=== PATIENT | male | born 1975 | race Caucasian/White ===

== ENCOUNTER 2021-12-30 19:15 | Emergency (ER) | payer MEDICAID ==
[~2021-12-30] VITALS: Ht 165.1 cm; Wt 100.0 kg
[2021-12-30] MEDS ORDERED: FLUORESCEIN SODIUM 1 MG STRIP OU ONE (20:00)
[2021-12-30] MEDS ORDERED: PROPARACAINE HCL 0.5% 15 ML OPHTHALMIC SOLUTION OU ONE (20:00)
[2021-12-30] MEDS ORDERED: ERYTHROMYCIN 0.5% 3.5 GM TUBE OPHTHALMIC OINTMENT OU ONE (21:15)
[2021-12-30 22:15] VITALS: BP 125/97
== END 2021-12-30 22:16 | disposition home or self-care (01) ==
LOC: EMS 19:19
DX: H57.89 Other specified disorders of eye and adnexa (principal); Z88.5 Allergy status to narcotic agent
CPT/HCPCS: 99284; Z7502; Z7610

== ENCOUNTER 2022-02-28 12:03 | Emergency (ER) | payer MEDICAID ==
[~2022-02-28] VITALS: Ht 165.1 cm; Wt 98.6 kg
[2022-02-28] MEDS ORDERED: METF-1185 PO (12:09)
[2022-02-28 12:16] VITALS: BP 147/84
[2022-02-28] MEDS ORDERED: KETOROLAC TROMETHAMINE 60 MG/2 ML VIAL IM ONE (12:30)
== END 2022-02-28 13:09 | disposition home or self-care (01) ==
LOC: EMS 12:03
DX: S46.911A Strain of unspecified muscle, fascia and tendon at shoulder and upper arm level, right arm, initial encounter (principal); E11.9 Type 2 diabetes mellitus without complications; Z87.19 Personal history of other diseases of the digestive system; Z88.8 Allergy status to other drugs, medicaments and biological substances; X58.XXXA Exposure to other specified factors, initial encounter; Y93.89 Activity, other specified; Y92.89 Other specified places as the place of occurrence of the external cause; Y99.8 Other external cause status
CPT/HCPCS: 82962; 96372; 99283; J1885

== ENCOUNTER 2022-07-21 11:47 | Emergency (ER) | payer MEDICAID ==
[~2022-07-21] VITALS: Ht 167.6 cm; Wt 100.0 kg
[~2022-07-21 11:47] MED LIST: METF-1185 PO
[2022-07-21] MEDS ORDERED: CEPH-558 PO (13:51)
[2022-07-21 14:04] VITALS: BP 130/72
== END 2022-07-21 14:10 | disposition home or self-care (01) ==
LOC: EMS 12:07
DX: L03.032 Cellulitis of left toe (principal); E11.9 Type 2 diabetes mellitus without complications; Z88.5 Allergy status to narcotic agent
CPT/HCPCS: 99283

== ENCOUNTER 2024-09-29 18:31 | Emergency (ER) | payer MEDICAID, OTHER ==
[~2024-09-29] VITALS: Ht 170.2 cm; Wt 100.0 kg
[~2024-09-29 18:31] MED LIST changes: +CEPH-558 PO
[2024-09-29 18:34] VITALS: TEMP 98.6
[2024-09-29] MEDS ORDERED: TERA5CAP4 PO (18:39)
[2024-09-29] MEDS ORDERED: ALBU18HF12 IH (18:39)
[2024-09-29] MEDS ORDERED: LISI20TA24 PO (18:39)
[2024-09-29] MEDS ORDERED: OMEP20CA12 PO (18:39)
[2024-09-29] MEDS ORDERED: METF-1211 PO (18:39)
[2024-09-29] MEDS ORDERED: ATOR40TA71 PO (18:39)
[2024-09-29] MEDS ORDERED: BUDE10.2 IH (18:39)
[2024-09-29] MEDS ORDERED: MONT-40 PO (18:39)
[2024-09-29] MEDS ORDERED: ALBU0.8311 NEB (18:39)
[2024-09-29 18:52] LABS: COVID AG,FIA SOURCE NASAL SWAB
[2024-09-29 19:22] LABS: INFLUENZA TYPE A NEGATIVE FOR TYPE A (NEGATIVE); INFLUENZA TYPE B NEGATIVE FOR TYPE B (NEGATIVE); SARS-COV2 (COVID) ANTIGEN,FIA Negative (Negative)
[2024-09-29] MEDS ORDERED: PRED-554 PO (20:58)
[2024-09-29] MEDS: PredniSONE 20 MG TABLET PO ONE (21:00)
[2024-09-29 21:21] VITALS: BP 150/97; PULSE 100; RESP 18; O2SAT 100
== END 2024-09-29 21:26 | disposition home or self-care (01) ==
LOC: EMS 18:31
DX: J45.901 Unspecified asthma with (acute) exacerbation (principal); E11.9 Type 2 diabetes mellitus without complications; E78.00 Pure hypercholesterolemia, unspecified; I10 Essential (primary) hypertension; Z79.52 Long term (current) use of systemic steroids; Z79.84 Long term (current) use of oral hypoglycemic drugs; Z79.899 Other long term (current) drug therapy; Z87.01 Personal history of pneumonia (recurrent); Z87.19 Personal history of other diseases of the digestive system; Z88.5 Allergy status to narcotic agent; Z20.822 Contact with and (suspected) exposure to COVID-19
CPT/HCPCS: 99284; 71045; 87426; 82962; 87804; J7512